=== PATIENT | male | born 1945 | race Caucasian/White ===

== ENCOUNTER 2019-05-25 14:17 | Emergency (ER) | payer MEDICARE ==
[2019-05-25] MEDS ORDERED: NORMAL SALINE 1000 ML 1,000 ML IV ONE (14:33)
--- NOTE | 2019-05-25 14:33 | ER Document Report ---
ED Medical Screen (RME) - General Chief Complaint: Nausea/Vomiting/Diarrhea Stated Complaint: NAUSEA/VOMITING Time Seen by Provider: 05/25/19 14:30 Primary Care Provider: DEEP SCHMITT PA [Primary Care Provider] - Follow up as needed Mode of Arrival: Medic Information source: Patient Notes: 74-year-old male presented to ED for complaint of pain in the right lower q uadrant/groin area. He states he has had nausea and vomiting and diarrhea. He states the nausea vomiting and diarrhea started on Wednesday and got worse yesterday. He states the pain started last night. He states he had a little fever and he was brought in by EMS. I have greeted and performed a rapid initial assessment of this patient. A comprehensive ED assessment and evaluation of the patient, analysis of test results and completion of medical decision making process will be conducted by an additional ED providers. TRAVEL OUTSIDE OF THE [place] IN LAST 30 DAYS: No - Related Data Allergies/Adverse Reactions: No Known Allergies Allergy (Unverified 03/07/19 08:50) Past Medical History - Past Medical History Cardiac Medical History: Reports: Hx Coronary Artery Disease, Hx Hypertension Denies: Hx Heart Attack Pulmonary Medical History: Reports: Hx Asthma, Hx COPD Denies: Hx Bronchitis, Hx Pneumonia Neurological Medical History: Denies: Hx Cerebrovascular Accident, Hx Seizures Musculoskeltal Medical History: Reports Hx Arthritis Doctor's Discharge - Discharge Referrals: DEEP SCHMITT PA [Primary Care Provider] - Follow up as needed
[2019-05-25 15:09] LABS: HEMATOCRIT 33.3 % (37.9-51.0); HEMOGLOBIN 11.2 g/dL (13.5-17.0); MEAN CORPUSCULAR HEMOGLOBIN 31.4 pg (27.0-33.4); MEAN CORPUSCULAR HGB CONC 33.5 g/dL (32.0-36.0); MEAN CORPUSCULAR VOLUME 94 fl (80-97); PLATELET COUNT 186 10^3/uL (150-450); RED BLOOD COUNT 3.56 10^6/uL (4.35-5.55); RED CELL DISTRIBUTION WIDTH 15.2 % (11.5-14.0); WHITE BLOOD COUNT 10.2 10^3/uL (4.0-10.5)
[2019-05-25 15:33] LABS: ALBUMIN 3.4 g/dL (3.5-5.0); ALKALINE PHOSPHATASE 64 U/L (38-126); ANION GAP 7 (5-19); ASPARTATE AMINO TRANSFERASE 34 U/L (17-59); BILIRUBIN,DIRECT 0.5 mg/dL (0.0-0.4); BLOOD UREA NITROGEN 20 mg/dL (7-20); CALCIUM 9.3 mg/dL (8.4-10.2); CARBON DIOXIDE 23 mmol/L (22-30); CHLORIDE 105 mmol/L (98-107); GLUCOSE 202 mg/dL (75-110); POTASSIUM 5.8 mmol/L (3.6-5.0); TOTAL PROTEIN 6.9 g/dL (6.3-8.2)
[2019-05-25 15:35] LABS: ABSOLUTE LYMPHOCYTES# (MANUAL) 0.7 10^3/uL (0.5-4.7); ABSOLUTE MONOCYTES # (MANUAL) 0.4 10^3/uL (0.1-1.4); BAND NEUTROPHILS % (MANUAL) 1 % (3-5); BASOPHILS % (MANUAL) 0 % (0-2); EOSINOPHILS % (MANUAL) 0 % (0-6); LYMPHOCYTES % (MANUAL) 7 % (13-45); MONOCYTES % (MANUAL) 4 % (3-13); SEGMENTED NEUTROPHILS % (MAN) 88 % (42-78); TOTAL CELLS COUNTED 100
[2019-05-25 15:37] LABS: PLATELET COMMENT ADEQUATE; RBC MORPHOLOGY COMMENT NORMO-CYTIC/CHROMIC
--- NOTE | 2019-05-25 15:54 | ER Document Report ---
ED GI/ <ALLEGRA MARQUEZ ALBAN - Last Filed: 05/25/19 20:16> - General Mode of Arrival: Medic Information source: Patient TRAVEL OUTSIDE OF THE [place] IN LAST 30 DAYS: No - HPI Patient complains to provider of: Abdominal pain, Vomiting Onset: Yesterday Timing/Duration: Gradual Quality of pain: Achy Pain Level: 3 Location: RLQ, Other - Right groin Associated symptoms: Chills, Diarrhea, Nausea, Vomiting. denies: Urinary hesitancy, Urinary frequency, Urinary retention Exacerbated by: Denies Relieved by: Denies Similar symptoms previously: No Recently seen / treated by doctor: No <YADI CRUZ - Last Filed: 05/25/19 20:19> - General Chief Complaint: Nausea/Vomiting/Diarrhea Stated Complaint: NAUSEA/VOMITING Time Seen by Provider: 05/25/19 14:30 Primary Care Provider: DEEP SCHMITT PA [Primary Care Provider] - Follow up as needed Notes: Patient presents complaining of right lower quadrant pain that started yesterday with nausea vomiting and diarrhea. Patient came via EMS who reported that patient had a fever of 102 and they treated this with Tylenol prior to arrival. Patient now complains of pain in the groin area. 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 Patient denies any chest pain cough shortness of breath. Patient states that he is just not been feeling well for the past several days. ( YADI CRUZ) - Related Data Allergies/Adverse Reactions: No Known Allergies Allergy (Unverified 03/07/19 08:50) Past Medical History - General Information source: Patient - Social History Smoking Status: Unknown if Ever Smoked Frequency of alcohol use: None Drug Abuse: None Lives with: Family Family History: Reviewed & Not Pertinent Patient has suicidal ideation: No Patient has homicidal ideation: No - Past Medical History Cardiac Medical History: Reports: Hx Congestive Heart Failure, Hx Coronary Artery Disease, Hx DVT, Hx Hypertension Denies: Hx Heart Attack Pulmonary Medical History: Reports: Hx Asthma, Hx COPD Neurological Medical History: Denies: Hx Cerebrovascular Accident, Hx Seizures Musculoskeletal Medical History: Reports Hx Arthritis Past Surgical History: Reports: Hx Cardiac Surgery <YADI CRUZ - Last Filed: 10/17/19 20:19> Review of Systems - Review of Systems Constitutional: Chills, Fever EENT: No symptoms reported Cardiovascular: No symptoms reported. denies: Chest pain Respiratory: No symptoms reported. denies: Cough, Short of breath Gastrointestinal: Abdominal pain, Diarrhea, Nausea, Vomiting Genitourinary: No symptoms reported. denies: Flank pain Male Genitourinary: No symptoms reported Musculoskeletal: No symptoms reported Skin: No symptoms reported Hematologic/Lymphatic: No symptoms reported Neurological/Psychological: No symptoms reported <YADI CRUZ - Last Filed: 05/25/19 20:19> Physical Exam - General General appearance: Alert In distress: None - HEENT Head: Normocephalic, Atraumatic Eyes: Normal Conjunctiva: Normal Nasal: Normal Mouth/Lips: Normal Mucous membranes: Normal Neck: Normal, Supple. No: Lymphadenopathy - Respiratory Respiratory status: No respiratory distress Chest status: Nontender Breath sounds: Normal Chest palpation: Normal - Cardiovascular Rhythm: Regular Heart sounds: S1 appreciated, S2 appreciated - Abdominal Inspection: Morbidly Obese Distension: No distension Bowel sounds: Normal Tenderness: Tender - right inguinal tenderness. No: McBurney's point, Foster's sign Organomegaly: No organomegaly - Back Back: Normal, Nontender. No: CVA tenderness - Extremities General upper extremity: Normal inspection, Normal ROM General lower extremity: Normal inspection, Normal ROM. No: Edema - Neurological Neuro grossly intact: Yes Cognition: Normal Milaca Coma Scale Eye Opening: Spontaneous Erma Coma Scale Verbal: Oriented Milaca Coma Scale Motor: Obeys Commands Milaca Coma Scale Total: 15 - Psychological Associated symptoms: Normal affect, Normal mood - Skin Skin Temperature: Warm Skin Moisture: Dry Skin Color: Normal <YADI CRUZ - Last Filed: 05/25/19 20:19> - Vital signs Vitals: Temp Pulse Resp BP Pulse Ox 99.8 F 99 19 135/53 H 99 05/25/19 14:26 05/25/19 14:26 05/25/19 14:26 05/25/19 14:26 05/25/19 14:26 Course - Laboratory Result Diagrams: 05/25/19 14:46 05/25/19 14:46 <ALLEGRA MARQUEZ IV - Last Filed: 05/25/19 20:16> - Laboratory Result Diagrams: 05/25/19 14:46 05/25/19 14:46 <YADI CRUZ - Last Filed: 05/25/19 20:19> - Re-evaluation Re-evalutation: 05/25/19 20:17 Patient seen and evaluated by this MD just prior to transfer. Other than sensation of urgency to urinate patient has no acute distress. This MD agrees with plan to transfer patient to outside facility for higher level of care not available at this hospital. (ALLEGRA MARQUEZ IV) 05/25/19 15:55 Spoke with RN about patient's pain symptoms. Nurse states that patient told EMS that his pain was to the right lower quadrant area. Patient told nurse that pain was to the right lateral side. Patient told me that it is into the right inguinal area. 05/25/19 18:22 Patient with a ureteral stone in the right UVJ with a shift on his CBC although no elevated white blood cell count. Patient did have a reported 102 fever per EMS that was treated with Tylenol prior to patient's arrival to the ER. Patient urine will be cultured and Rocephin will be started IV at this time. Consulted with Dr. Resendiz regarding patient's hyperkalemia, recommends giving patient 5 units of insulin as well as an amp of D50 at this time. EKG reviewed, no changes noted reflective of his hyperkalemia. 05/25/19 19:15 Patient has been accepted to [facility] to the services of Dr. Justice. Neurologist is requesting expedited transfer given concern about possible developing sepsis. 05/25/2019 20:05Patient stable for transfer at this time. Patient has pulled his IV out, RN is at bedside for line placement. 05/25/19 20:19 Dr Griffin requesting mahoney cath placement prior to transfer (YADI CRUZ) - Vital Signs Vital signs: Temp Pulse Resp BP Pulse Ox 98.3 F 86 18 167/93 H 93 05/25/19 20:10 05/25/19 20:10 05/25/19 20:10 05/25/19 20:10 05/25/19 20:10 - Laboratory Laboratory results interpreted by me: 05/25/19 05/25/19 05/25/19 14:46 14:46 14:46 RBC 3.56 L Hgb 11.2 L Hct 33.3 L RDW 15.2 H Seg Neuts % (Manual) 88 H Band Neutrophils % 1 L Lymphocytes % (Manual) 7 L Abs Neuts (Manual) 9.1 H Sodium 135.0 L Potassium 5.8 H Creatinine 1.47 H Est GFR ( Amer) 57 L Est GFR (MDRD) Non-Af 47 L Glucose 202 H Total Bilirubin 2.0 H Direct Bilirubin 0.5 H NT-Pro-B Natriuret Pep Albumin 3.4 L Lipase 20.9 L Urine Protein Urine Blood Ur Leukocyte Esterase 05/25/19 05/25/19 14:46 17:03 RBC Hgb Hct RDW Seg Neuts % (Manual) Band Neutrophils % Lymphocytes % (Manual) Abs Neuts (Manual) Sodium Potassium Creatinine Est GFR ( Amer) Est GFR (MDRD) Non-Af Glucose Total Bilirubin Direct Bilirubin NT-Pro-B Natriuret Pep 4110 H Albumin Lipase Urine Protein 100 H Urine Blood SMALL H Ur Leukocyte Esterase LARGE H Discharge <ALLEGRA MARQUEZ IV - Last Filed: 05/25/19 20:16> <YADI CRUZ - Last Filed: 05/25/19 20:19> - Discharge Clinical Impression: Ureteral stone, Acute kidney injury Fever Qualifiers: Fever type: unspecified Qualified Code(s): R50.9 - Fever, unspecified Condition: Fair Disposition: [facility] Referrals: DEEP SCHMITT PA [Primary Care Provider] - Follow up as needed
--- NOTE | 2019-05-25 16:30 | RADIOLOGY REPORT (SQ) ---
EXAM DESCRIPTION: CHEST 2 VIEWS COMPLETED DATE/TIME: 05/25/2019 4:20 pm REASON FOR STUDY: fever COMPARISON: 03/07/2019. EXAM PARAMETERS: NUMBER OF VIEWS: two views TECHNIQUE: Digital Frontal and Lateral radiographic views of the chest acquired. RADIATION DOSE: NA LIMITATIONS: none FINDINGS: LUNGS AND PLEURA: No opacities, masses or pneumothorax. No pleural effusion. MEDIASTINUM AND HILAR STRUCTURES: No masses or contour abnormalities. HEART AND VASCULAR STRUCTURES: Heart normal size. No evidence for failure. BONES: No acute findings. HARDWARE: None in the chest. OTHER: No other significant finding. IMPRESSION: NO ACUTE RADIOGRAPHIC FINDING IN THE CHEST. TECHNICAL DOCUMENTATION: JOB ID: [id number] [employer]- All Rights Reserved Reading location - IP/workstation name: [email or web address]
--- NOTE | 2019-05-25 16:51 | RADIOLOGY REPORT (SQ) ---
EXAM DESCRIPTION: CT ABD/PELVIS WITH IV ONLY COMPLETED DATE/TIME: 05/25/2019 4:35 pm REASON FOR STUDY: rlq abdominal pain nvd COMPARISON: None. TECHNIQUE: CT scan of the abdomen and pelvis performed using helical scanning technique with dynamic intravenous contrast injection. No oral contrast. Images reviewed with lung, soft tissue, and bone windows. Reconstructed coronal and sagittal MPR images reviewed. Delayed images for evaluation of the urinary system also acquired. All images stored on PACS. All CT scanners at this facility use dose modulation, iterative reconstruction, and/or weight based d osing when appropriate to reduce radiation dose to as low as reasonably achievable (ALARA). [facility]: Dose Right [facility]: CareDose [facility]: Dose Right [facility]: Teradose 4D [facility]: Intelligize CONTRAST TYPE AND DOSE: contrast/concentration: Isovue 300.00 mg/ml; Total Contrast Delivered: 97.0 ml; Total Saline Delivered: 25.8 ml RENAL FUNCTION: BUN 20 creatinine 1.47. RADIATION DOSE: CT Rad equipment meets quality standard of care and radiation dose reduction techniq ues were employed. CTDIvol: 21.0 - 21.1 mGy. DLP: 2383 mGy-cm.. LIMITATIONS: None. FINDINGS: LOWER CHEST: No significant findings. No nodules or infiltrates. LIVER: Normal size. No masses. No dilated ducts. SPLEEN: Normal size. No focal lesions. PANCREAS: No masses. No significant calcifications. No adjacent inflammation or peripancreatic fluid collections. Pancreatic duct not dilated. GALLBLADDER: No identified stones by CT criteria. No inflammatory changes to suggest cholecystitis. ADRENAL GLANDS: No significant masses or asymmetry. RIGHT KIDNEY AND URETER: No solid masses. 4 mm calculus in the distal ureter near the ureteral vesi cular junction. Stranding in the perinephric soft tissues. Delayed excretion. Moderate hydronephr osis and hydroureter. LEFT KIDNEY AND URETER: No solid masses. No significant calcifications. No hydronephrosis or hydr oureter. AORTA AND VESSELS: No aneurysm. No dissection. Renal arteries, SMA, celiac without stenosis. RETROPERITONEUM: No retroperitoneal adenopathy, hemorrhage or masses. BOWEL AND PERITONEAL CAVITY: No masses or inflammatory changes. No free fluid or peritoneal masses. APPENDIX: Normal. PELVIS: No mass. No free fluid. Normal bladder. ABDOMINAL WALL: No masses. No hernias. BONES: No acute findings. Marked degenerative changes in the right hip. OTHER: No other significant finding. IMPRESSION: 1. OBSTRUCTING 4 MM CALCULUS IN THE DISTAL RIGHT URETER. 2. NO OTHER SIGNIFICANT OR ACUTE FINDING IN THE ABDOMEN OR PELVIS ON CT SCAN WITH IV CONTRAST. TECHNICAL DOCUMENTATION: JOB ID: [id number] Quality ID # [id number]: Final reports with documentation of one or more dose reduction techniques (e.g., Au tomated exposure control, adjustment of the mA and/or kV according to patient size, use of iterative reconstruction technique) 2010 [employer]- All Rights Reserved Reading location - IP/workstation name: [email or web address]-
[2019-05-25 17:31] LABS: APPEARANCE,URINE CLOUDY; BILIRUBIN,URINE NEGATIVE (NEGATIVE); COLOR,URINE YELLOW; GLUCOSE, URINE NEGATIVE (NEGATIVE); KETONES,URINE NEGATIVE (NEGATIVE); LEUKOCYTE ESTERASE,URINE LARGE (NEGATIVE); NITRITE,URINE NEGATIVE (NEGATIVE); PROTEIN,URINE 100 mg/dL (NEGATIVE); URINE SPECIFIC GRAVITY 1.013; UROBILINOGEN,URINE NEGATIVE mg/dL (<2.0)
[2019-05-25] MEDS ORDERED: CEFTRIAXONE 1 GM/D5W RTU 1 GM/50 ML RTUPB IV ONE (18:17)
[2019-05-25] MEDS ORDERED: INSULIN REG, HUMAN 100 UNIT/ML 3 ML VIAL (PYX) IV ONE (18:21)
[2019-05-25] MEDS ORDERED: DEXTROSE 50%-WATER 25 GM/50 ML DISP.SYRIN IV ONE (18:21)
[2019-05-25] MEDS ORDERED: CEFTRIAXONE INJ 1000 MG VIAL ONE (18:44)
[2019-05-25] MEDS ORDERED: FENTANYL CITRATE INJ/PF 100 MCG/2 ML AMPUL IV ONE (20:16)
[2019-05-25] MEDS ORDERED: LIDOCAINE 2% URO-JET 5 ML KIT MM ONE (20:17)
[2019-05-25 20:30] VITALS: BP 167/63
--- NOTE | 2019-05-26 07:19 | EKG REPORT ---
SEVERITY:- ABNORMAL ECG - SINUS RHYTHM BORDERLINE RIGHT AXIS DEVIATION MINIMAL ST DEPRESSION, LATERAL LEADS : Confirmed by: Pearl Manley 26-May-2019 07:19:07
[2019-05-26] MEDS ORDERED: CEFTRIAXONE SODIUM 750 MG in DEXTROSE 5%-WATER 50 ML IV SCH (10:00)
== END 2019-05-25 20:46 | disposition short-term general hospital (02) ==
LOC: ER 14:17
DX: N20.1 Calculus of ureter (principal); N17.9 Acute kidney failure, unspecified; R50.9 Fever, unspecified; R19.7 Diarrhea, unspecified; R11.2 Nausea with vomiting, unspecified; R10.31 Right lower quadrant pain; I11.0 Hypertensive heart disease with heart failure; I50.9 Heart failure, unspecified; I25.10 Atherosclerotic heart disease of native coronary artery without angina pectoris; Z86.718 Personal history of other venous thrombosis and embolism
CPT/HCPCS: 93005; 99285; 96361; 51702; 96375; 96365; 36415; 87040; 87086; 83605; 83690; 85025; 87077; 87088; 80053; 81001; 87186; 87150 ×26; 83880; 71046; 74177; 93010; J3490; J3010; A9270 ×2; J7030; J0696; J1815

== ENCOUNTER 2019-06-21 09:44 | Day surgery (SDC) | payer MEDICARE ==
[~2019-06-21 09:44] MED LIST: KETOROLAC TROMETHAMINE 0.45% 4 DROP/0.4 ML DROPERETTE OD PRN; TOBRAMYCIN SULFATE/DEXAMETH OPH OINTMENT 3.5 GM ONE
[2019-06-21] MEDS: BESIFLOXACIN HCL 0.6% OPH SUSP 5 ML BOTTLE OD PRN ×4 (10:50→11:41)
[2019-06-21] MEDS: TETRACAINE HCL 0.5% OPH SOLN 4 ML OD PRN ×4 (10:50→11:20)
[2019-06-21] MEDS: CYCLOPENTOLATE 0.2%/PHENYLEPHRINE 1% OPH SOLN 2 ML OD PRN ×3 (10:50→11:14)
[2019-06-21] MEDS: TROPICAMIDE 1% OPH SOLN 15 ML OD PRN ×3 (10:50→11:13)
[2019-06-21] MEDS ORDERED: FENTANYL CITRATE INJ/PF 100 MCG/2 ML AMPUL ONE (11:11)
[2019-06-21] MEDS ORDERED: MIDAZOLAM 2 MG/2 ML INJ ONE (11:11)
[2019-06-21] MEDS: LIDOCAINE 1%/PHENYLEPHRINE 1.5% 1 ML VIAL ONE ×2 (11:30)
[2019-06-21] MEDS: EPINEPHRINE INJ/PF 1 MG/1 ML AMPULE ONE ×2 (11:30)
[2019-06-21] MEDS: CHONDR SU A NA/HYALUR INTRAOC KIT (SURGICARE) ONE ×2 (11:30)
[2019-06-21] MEDS: DORZOLAMIDE HCL 2%/TIMOLOL MALEAT 0.5% OPH SOLN 10 ML OD PRN ×2 (11:41)
== END 2019-06-21 12:27 | disposition home or self-care (01) ==
LOC: SC 09:44
PROVIDERS: ATTEND Ophthalmology
DX: H25.11 Age-related nuclear cataract, right eye (principal); J44.9 Chronic obstructive pulmonary disease, unspecified; I25.2 Old myocardial infarction; I10 Essential (primary) hypertension; E11.9 Type 2 diabetes mellitus without complications; E78.00 Pure hypercholesterolemia, unspecified; F17.210 Nicotine dependence, cigarettes, uncomplicated
CPT/HCPCS: 66984; 82962; 00142; J2250; J3490 ×2; A9270 ×2; J0171; J3010; J2370; 142

== ENCOUNTER 2019-07-03 11:07 | Day surgery (SDC) | payer MEDICARE ==
[~2019-07-03 11:07] MED LIST changes: -KETOROLAC TROMETHAMINE 0.45% 4 DROP/0.4 ML DROPERETTE OD PRN; +KETOROLAC TROMETHAMINE 0.45% 4 DROP/0.4 ML DROPERETTE OS PRN; +LACTATED RINGERS 1000 ML IV PRN; +LIDOCAINE 0.5% INJ-PF (5 MG/ML) 50 ML SDV SUBCUT PRN; +MIDAZOLAM 2 MG/2 ML INJ ONE; -TOBRAMYCIN SULFATE/DEXAMETH OPH OINTMENT 3.5 GM ONE
[2019-07-03] MEDS: TROPICAMIDE 1% OPH SOLN 15 ML OS PRN ×3 (12:55→13:15)
[2019-07-03] MEDS: BESIFLOXACIN HCL 0.6% OPH SUSP 5 ML BOTTLE OS PRN ×4 (12:55→14:09)
[2019-07-03] MEDS: CYCLOPENTOLATE 0.2%/PHENYLEPHRINE 1% OPH SOLN 2 ML OS PRN ×3 (12:55→13:15)
[2019-07-03] MEDS: TETRACAINE HCL 0.5% OPH SOLN 4 ML OS PRN ×4 (12:56→13:48)
[2019-07-03] MEDS: EPINEPHRINE INJ/PF 1 MG/1 ML AMPULE ONE ×2 (13:55)
[2019-07-03] MEDS: LIDOCAINE 1%/PHENYLEPHRINE 1.5% 1 ML VIAL ONE ×2 (13:55)
[2019-07-03] MEDS: CHONDR SU A NA/HYALUR INTRAOC KIT (SURGICARE) ONE ×2 (13:55)
[2019-07-03] MEDS: DORZOLAMIDE HCL 2%/TIMOLOL MALEAT 0.5% OPH SOLN 10 ML OS PRN ×2 (14:09)
[2019-07-03] MEDS: TOBRAMYCIN SULFATE/DEXAMETH OPH OINTMENT 3.5 GM ONE ×2 (14:09)
== END 2019-07-03 14:37 | disposition home or self-care (01) ==
LOC: SC 11:07
PROVIDERS: ATTEND Ophthalmology
DX: H25.12 Age-related nuclear cataract, left eye (principal); Z98.41 Cataract extraction status, right eye; I25.10 Atherosclerotic heart disease of native coronary artery without angina pectoris; E11.9 Type 2 diabetes mellitus without complications; I10 Essential (primary) hypertension; E78.00 Pure hypercholesterolemia, unspecified; J44.9 Chronic obstructive pulmonary disease, unspecified; Z79.82 Long term (current) use of aspirin; Z79.01 Long term (current) use of anticoagulants; Z79.899 Other long term (current) drug therapy; Z79.84 Long term (current) use of oral hypoglycemic drugs; F17.210 Nicotine dependence, cigarettes, uncomplicated
CPT/HCPCS: 66984; 82962; 00142; V2632; J2250; J3490 ×3; A9270 ×2; J0171; J2370; 142